=== PATIENT | female | born 1970 | race American Indian/Alaskan Native ===

== ENCOUNTER 2021-07-12 10:52 | Emergency (ER) | payer BC ==
[2021-07-12] MEDS ORDERED: METOCLOPRAMIDE 10 MG/2 ML INJ IV PRN (13:35)
[2021-07-12] MEDS ORDERED: SODIUM CHLORIDE 0.9% 1000 ML 1,000 ML IV ONE (13:35)
[2021-07-12] MEDS ORDERED: diphenhydrAMINE 50 MG/ML VIAL IV ONE (13:35)
--- NOTE | 2021-07-12 13:38 | Emergency Department Report ---
ED General Adult HPI - General Chief complaint: High BP Stated complaint: HIGH BLOOD PRESSURE/HEADACHE Source: patient Mode of arrival: Ambulatory Limitations: No Limitations - History of Present Illness Initial comments: This is a very pleasant 51-year-old female who presents to the emergency department for evaluation. She reports she woke up this morning with a severe frontal headache with associated nausea and sensitivity to light. She states she does not normally get headaches. She states this was gradually getting worse since initially started when she woke up. She tried to go to work and took aspirin but that did not have any relief in her symptoms. She decided to check her blood pressure and went to [facility] to where it was 185/110 and was told to come to the emergency department for evaluation. She does have a history of hypertension but took herself off her blood pressure medication due to her being able to control her pressure with diet. She denies any other past medical history, current medication use or known allergies to medications. She denies any associated fever, chills, night sweats, headache, dizziness, blurry vision, chest pain, shortness of breath, weakness or any other associated symptoms. She does state that she has been under increased stress lately secondary to her son who has mental health issues. Severity scale (0 -10): 8 - Related Data Previous Rx's Medication Instructions Recorded Last Taken Type Butalb/Acetaminophen/Caffeine 1 cap PO Q6HR PRN #8 cap 07/12/21 Unknown Rx [Fioricet 50-300-40 mg CAP] amLODIPine 5 mg PO DAILY #30 tab 07/12/21 Unknown Rx Allergies Allergy/AdvReac Type Severity Reaction Status Date / Time No Known Allergies Allergy Unverified 07/12/21 11:35 ED Review of Systems ROS: Stated complaint: HIGH BLOOD PRESSURE/HEADACHE Other details as noted in HPI Comment: All other systems reviewed and negative Constitutional: denies: chills, fever Eyes: denies: eye pain, eye discharge, vision change ENT: denies: ear pain, throat pain Respiratory: denies: cough, shortness of breath, wheezing Cardiovascular: denies: chest pain, palpitations Endocrine: no symptoms reported Gastrointestinal: denies: abdominal pain, nausea, diarrhea Genitourinary: denies: urgency, dysuria, discharge Musculoskeletal: denies: back pain, joint swelling, arthralgia Skin: denies: rash, lesions Neurological: as per HPI, headache. denies: weakness, paresthesias Psychiatric: denies: anxiety, depression Hematological/Lymphatic: denies: easy bleeding, easy bruising ED Past Medical Hx - Past Medical History Previous Medical History?: Yes Hx Hypertension: Yes - Surgical History Past Surgical History?: Yes Additional Surgical History: right eye, TL - Medications Home Medications: Home Medications Medication Instructions Recorded Confirmed Last Taken Type Butalb/Acetaminophen/Caffeine 1 cap PO Q6HR PRN #8 cap 07/12/21 Unknown Rx [Fioricet 50-300-40 mg CAP] amLODIPine 5 mg PO DAILY #30 tab 07/12/21 Unknown Rx ED Physical Exam - General Limitations: No Limitations General appearance: alert, in no apparent distress - Head Head exam: Present: atraumatic, normocephalic - Eye Eye exam: Present: normal appearance, PERRL, EOMI Pupils: Present: normal accommodation - ENT ENT exam: Present: normal exam, normal orophraynx, mucous membranes moist - Neck Neck exam: Present: normal inspection, full ROM. Absent: tenderness, meningismus - Respiratory Respiratory exam: Present: normal lung sounds bilaterally. Absent: respiratory distress - Cardiovascular Cardiovascular Exam: Present: regular rate, normal rhythm, normal heart sounds. Absent: systolic murmur, diastolic murmur, rubs, gallop - GI/Abdominal GI/Abdominal exam: Present: soft, normal bowel sounds. Absent: distended, tenderness, guarding, rebound, rigid - Extremities Exam Extremities exam: Present: normal inspection, full ROM, normal capillary refill. Absent: tenderness - Back Exam Back exam: Present: normal inspection, full ROM. Absent: tenderness - Neurological Exam Neurological exam: Present: alert, oriented X3, CN II-XII intact, normal gait, other (Normal cranial nerves II through XII intact, normal strength and sensation to the bilateral upper and lower extremities, normal [id number] and [id number]-cx-droz bilaterally, normal gait without ataxia). Absent: motor sensory deficit - Psychiatric Psychiatric exam: Present: normal affect, normal mood - Skin Skin exam: Present: warm, dry, intact, normal color. Absent: rash ED Course Vital Signs 07/12/21 11:38 Temperature 98.3 F Pulse Rate 74 Respiratory 18 Rate Blood Pressure 181/110 [Right] O2 Sat by Pulse 100 Oximetry - Reevaluation(s) Reevaluation #1: 08/20/21 13:37 The patient's NIH score is 0 and she has no focal neurologic deficits on her exam. She did have a frontal headache and I will scan her head due to the lack of history of headaches. If normal I plan to send the patient home with amlodipine for her blood pressure and recommended outpatient follow-up with primary care doctor. Reevaluation #2: 07/12/21 14:33 Patient is feeling much better. Headache improved from an 8 out of 10 to a 4 out of 10. She wants to go home. She declined IV fluids. CT head was unremarkable. ED Medical Decision Making - Medical Decision Making Patient is nontoxic in no acute distress. Her headache was gradual in onset and she did not complain of a thunderclap onset headache and my suspicion for a subarachnoid hemorrhage is low at this time. She has no head injury and no traumatic findings on physical exam and CT was unremarkable. Her NIH was 0 with no focal neurologic deficits and my suspicion for CVA is low. Regardless she is not a TPA candidate due to her symptoms being wake-up and an NIH of 0. She was given Reglan and Benadryl and her symptoms greatly improved. She wanted to go home. I will discharge her with amlodipine for her elevated blood pressure, Fioricet as needed for headaches and recommend outpatient primary care follow- up. Instructed she return to the emergency department immediately if she develops any change or worsening symptoms. She verbalized understanding the diagnosis, treatment plan and follow-up instructions and all of her questions were answered. - Differential Diagnosis Migraine, sinusitis, subarachnoid hemorrhage Critical care attestation.: If time is entered above; I have spent that time in minutes in the direct care of this critically ill patient, excluding procedure time. ED Disposition Clinical Impression: Elevated blood pressure reading Acute headache Qualifiers: Headache type: unspecified Intractability: not intractable Qualified Code(s): R51.9 - Headache, unspecified Disposition: 01 HOME / SELF CARE / HOMELESS Is pt being admited?: No Condition: Stable Instructions: General Headache Without Cause, Hypertension, Adult Prescriptions: amLODIPine 5 mg PO DAILY #30 tab Butalb/Acetaminophen/Caffeine [Fioricet 50-300-40 mg CAP] 1 cap PO Q6HR PRN #8 cap PRN Reason: Headache Referrals: PRIMARY CARE, [Primary Care Provider] - 3-5 Days [facility] [Provider Group] - 3-5 Days Time of Disposition: 14:38
--- NOTE | 2021-07-12 13:56 | Cat Scan Report ---
CT head/brain wo con INDICATION: headache. TECHNIQUE: All CT scans at this location are performed using CT dose reduction for ALARA by means of automated e xposure control. COMPARISON: None available. FINDINGS: There is no evidence of hemorrhage, hydrocephalus, brain edema, or mass effect/mass lesion. There is overall normal brain formation and brain volume for the patient's age. Ventricular and cisternal/sulc al size is normal for age. Scattered areas of signal white matter hypoattenuation suggests chronic sm all vessel ischemic change. The included paranasal sinuses and mastoid air cells are clear. The orbits appear unremarkable. IMPRESSION: 1. No acute findings. Signer Name: Mac Sena MD Signed: 07/12/2021 1:51 PM Workstation Name: [id number]
[2021-07-12 14:37] VITALS: BP 171/98
== END 2021-07-12 14:50 | disposition home or self-care (01) ==
LOC: ED 10:52
DX: I10 Essential (primary) hypertension (principal); R51.9 Headache, unspecified; Z98.890 Other specified postprocedural states
CPT/HCPCS: 70450; 96361; 96374; 96375; 99284; J1200; J2765